=== PATIENT | male | born 1955 | race Caucasian/White ===

== ENCOUNTER → 2017-02-03 | Outpatient (CLI) | payer BC | END | disposition home or self-care (01) | LOC: PCVCIMAG 13:21 | PROVIDERS: ATTEND Internal Medicine Cardiovascular Disease | DX: I10 Essential (primary) hypertension (principal); E78.00 Pure hypercholesterolemia, unspecified; I42.8 Other cardiomyopathies; R06.00 Dyspnea, unspecified; I25.10 Atherosclerotic heart disease of native coronary artery without angina pectoris | CPT/HCPCS: 80061; 93005; 93306 ==

== ENCOUNTER → 2018-04-18 | Outpatient (CLI) | payer BC | END | disposition home or self-care (01) | LOC: PCVCIMAG 14:26 | DX: I10 Essential (primary) hypertension (principal); I42.9 Cardiomyopathy, unspecified; I25.10 Atherosclerotic heart disease of native coronary artery without angina pectoris | CPT/HCPCS: 93306 ==

== ENCOUNTER → 2019-08-15 | Outpatient (CLI) | payer BC ==
--- NOTE | 2019-08-15 15:34 | PCVCIMAG ---
APPROVED REPORT Study performed: 08/15/2019 13:29:45 EXAM: Comprehensive 2D, Doppler, and color-flow Echocardiogram Patient Location: Echo lab Status: routine BSA: 2.12 HR: 77 bpmBP: 122/80 mmHg Rhythm: NSR Other Information Study Quality: Technically Difficult Risk Factors: Cardiac Risk Factors: HTN, Hyperlipidemia Indications Cardiomyopathy 2D Dimensions IVSd: 16.45 (7-11mm)LVOT Diam: 22.16 (18-24mm) LVDd: 39.07 mm PWd: 14.55 (7-11mm)Ascending Ao: 36.41 (22-36mm) LVDs: 31.23 (25-40mm) Left Atrium: 33.16 (27-40mm) Aortic Root: 31.44 mm LV Single Plane 4CH: 43.97 % LV Single Plane 2CH: 45.92 % Biplane EF: 43.2 % Volumes Left Atrial Volume (Systole) Single Plane 4CH: 26.39 mLSingle Plane 2CH: 31.76 mL LA ESV Index: 15.00 mL/m2 Aortic Valve AoV Peak Jeremy.: 0.87 m/s AO Peak Gr.: 3.06 mmHgLVOT Max P.61 mmHg LVOT Max V: 0.64 m/s RACHELL Vmax: 2.80 cm2 Mitral Valve E/A Ratio: 0.6 MV Decel. Time: 187.19 ms MV E Max Jeremy.: 0.37 m/s MV A Jeremy.: 0.65 m/s TDI E/Lateral E': 6.17E/Medial E': 6.17 Medial E' Jeremy.: 0.06 m/s Lateral E' Jeremy.: 0.06 m/s Pulmonary Valve PV Peak Gr.: 1.61 mmHg Pulmonary Vein P Vein S: 0.37 m/sP Vein A: 0.35 m/s P Vein D: 0.29 m/sP Vein A Dur.: 110.7 msec P Vein S/D Ratio: 1.28 Left Ventricle The left ventricle is normal size. There is normal LV segmental wall motion. Mild concentric left ventricular hypertrophy. Left ventricular systolic function is moderately decreased.globally LVEF is 40-45%. Right Ventricle The right ventricle is normal size. The right ventricular systolic function is normal. Atria The left atrium size is normal. The right atrium size is normal. Aortic Valve The aortic valve is normal in structure. No aortic regurgitation is present. There is no aortic valvular stenosis. Mitral Valve The mitral valve is normal in structure. There is no mitral valve regurgitation noted. No evidence of mitral valve stenosis. Tricuspid Valve The tricuspid valve is normal in structure. There is no tricuspid valve regurgitation noted. Pulmonic Valve The pulmonary valve is normal in structure. There is no pulmonic valvular regurgitation. Great Vessels The aortic root is normal in size. IVC is normal in size and collapses >50% with inspiration. Pericardium There is no pericardial effusion. <Conclusion> The left ventricle is normal size. Mild concentric left ventricular hypertrophy. Left ventricular systolic function is moderately decreased.globally LVEF is 40-45%. The right ventricle is normal size. The left atrium size is normal. The aortic valve is normal in structure. There is no mitral valve regurgitation noted. There is no tricuspid valve regurgitation noted. The aortic root is normal in size. There is no pericardial effusion.
== END | disposition home or self-care (01) ==
LOC: PCVCIMAG 13:25
PROVIDERS: ATTEND Internal Medicine Cardiovascular Disease
DX: I11.9 Hypertensive heart disease without heart failure (principal); I25.10 Atherosclerotic heart disease of native coronary artery without angina pectoris; E78.00 Pure hypercholesterolemia, unspecified; I42.9 Cardiomyopathy, unspecified; J45.909 Unspecified asthma, uncomplicated; Z79.899 Other long term (current) drug therapy; Z79.82 Long term (current) use of aspirin
CPT/HCPCS: 93306